=== PATIENT | female | born 1965 | race Caucasian/White ===

== ENCOUNTER 2020-08-26 14:26 | Inpatient (IN) | payer SELFPAY ==
--- NOTE | 2020-08-26 16:20 | RAD ---
Exam: Right foot 3 views: HISTORY: Discoloration coolness right great toe COMPARISON: None FINDINGS: Arthrosis changes of the tibiotalar joint with hypertrophic osteophytosis and joint space loss. Inter nal fixation screws stabilizing distal fibula. Diffuse dorsal soft tissue swelling of the foot No evidence for fracture, dislocation, or other significant acute osseous abnormality. IMPRESSION: Arthrosis changes of the ankle joint.
[2020-08-26 16:34] LABS: #Basophils 0.1 thou/uL (0.0-0.2); #Eosinphils 0.3 thou/uL (0.0-0.7); #Lymphocytes 3.4 thou/uL (1.20-3.40); #Monocytes 0.9 thou/uL (0.11-0.59); #Neutrophils 6.6 thou/uL (1.40-6.50); %Basophils 0.9 % (0.0-1.0); %Eosinophils 2.6 % (0.0-10.0); %Lymphocytes 30.1 % (21.0-51.0); %Monocytes 8.1 % (0.0-10.0); %Neutrophils 58.4 % (42.0-75.0); Hemoglobin 13.7 g/dL (12.0-16.0); Mean Corpuscular HGB CONC 32.7 g/dL (32.0-36.0); Mean Corpuscular Hemoglobin 28.3 pg (27.0-31.0); Mean Corpuscular Volume 86.7 fL (78.0-98.0); Mean Platelet Volume 6.1 fL (7.4-10.4); Platelet Count 392 thou/uL (130-400); RBC Distribution Width 12.7 % (11.5-14.5); Red Blood Cell (RBC) Count 4.83 mill/uL (4.20-5.40); White Blood Cell (WBC) Count 11.3 thou/uL (4.8-10.8)
[2020-08-26 17:01] LABS: ALT (SGPT) 18 U/L (8-55); AST (SGOT) 19 U/L (5-34); Albumin 3.6 g/dL (3.5-5.0); Alkaline Phosphatase 90 U/L (40-110); Anion Gap 17 mmol/L (10-20); BUN (Urea Nitrogen) 10 mg/dL (9.8-20.1); Bilirubin, Total 0.2 mg/dL (0.2-1.2); Calc. Creatinine Clearance 0 mL/min (70-130); Carbon Dioxide 22 mmol/L (22-29); Chloride 108 mmol/L (98-107); Globulin 2.7 g/dL (2.4-3.5); Glucose 154 mg/dL (70-105); Potassium 4.1 mmol/L (3.5-5.1); Protein, Total 6.3 g/dL (6.0-8.3); Sodium 143 mmol/L (136-145)
[2020-08-26] MEDS ORDERED: Cefepime 2 GM VIAL ONE (17:30)
[2020-08-26] MEDS ORDERED: Ondansetron PF 4 MG/2 ML Vial ONE (17:30)
[2020-08-26] MEDS ORDERED: Morphine 4 MG/ML VIAL ONE (17:30)
[2020-08-26] MEDS ORDERED: Vancomycin 1 GM/200 ML BAG ONE (19:25)
[2020-08-26] MEDS ORDERED: HYDROcodone/Acetaminophen 7.5/325 mg Tablet PO PRN (20:30)
[2020-08-26] MEDS ORDERED: HumaLOG 300 UNITS/3 ML VIAL SC PRN (20:30)
[2020-08-26] MEDS ORDERED: Dextrose 5% in Water 1,000 ML IV PRN (20:30)
[2020-08-26] MEDS ORDERED: Ondansetron ODT 4 MG TAB PO PRN (20:30)
[2020-08-26] MEDS ORDERED: Calcium Carbonate 500 MG ChewTAB PO PRN (20:30)
[2020-08-26] MEDS ORDERED: Morphine 2 MG/ML SYRINGE SLOW IVP PRN (20:30)
[2020-08-26] MEDS ORDERED: Ondansetron PF 4 MG/2 ML Vial IVP PRN (20:30)
[2020-08-26] MEDS ORDERED: Acetaminophen 325 MG TAB PO PRN (20:30)
[2020-08-26] MEDS ORDERED: Dextrose 50% Abboject 50 ML SYRINGE SLOW IVP PRN (20:30)
--- NOTE | 2020-08-26 20:38 | PDOC.HHP ---
Hospitalist HPI - History of Present Illness R big toe pain History of Present Illness: Case of an 54y/o female with pmhx of htn, hld hypercholesterolemia and DM who comes to hospital due to great toe pain and discoloration. patient refers she was on her usual state of gwen until over a month ago when she started with pain erythema increased temp and swelling of her toe. she states that she was hospitalize for almost a week at [facility] and left due to the recommendation of amputation. she reports stayed a day on her house and felt toe was getting worse and pain was 10/10 for which she decided to comes to hospital for evaluation. patient denies any fever chills nausea or vomiting. Hospitalist ROS - Review of Systems All other systems reviewed; all pertinent +/- noted in HPI/Subj Hospitalist History - Past Surgical History Past Surgical History: reports: - Family History Family History: reports: diabetes mellitus, hyperlipidemia, hypertension - Social History Smoking Status: Current every day smoker Alcohol: reports: Occassional Drugs: reports: marijuana Living Situation: With Family Activity level: independent ambulation - Exam General Appearance: NAD, awake alert Eye: PERRL, anicteric sclera ENT: normocephalic atraumatic, no oropharyngeal lesions Neck: supple, symmetric, no JVD, no thyromegaly Heart: RRR, no murmur, no gallops, no rubs Respiratory: CTAB, no wheezes, no rales, no ronchi Gastrointestinal: soft, non-tender, non-distended, normal bowel sounds Extremities: no cyanosis, no clubbing, no edema Extremities - other findings: R toe w echymosis erythema tender to palpation increased in temp Neurological: cranial nerve grossly intact, normal sensation to touch, no weakness, no focal deficits Musculoskeletal: normal tone, normal strength, no muscle wasting Psychiatric: normal affect, normal behavior, A&O x 3 Hospitalist Results - Labs Result Diagrams: 08/26/20 16:17 08/26/20 16:17 Lab results: WBC 11.3 thou/uL (4.8-10.8) H 08/26/20 16:17 Hgb 13.7 g/dL (12.0-16.0) 08/26/20 16:17 Hct 41.9 % (36.0-47.0) 08/26/20 16:17 MCV 86.7 fL (78.0-98.0) 08/26/20 16:17 Plt Count 392 thou/uL (130-400) 08/26/20 16:17 Neutrophils % 58.4 % (42.0-75.0) 08/26/20 16:17 ESR Westergren 24 mm/hr (Less than 30) 08/26/20 16:17 Sodium 143 mmol/L (136-145) 08/26/20 16:17 Potassium 4.1 mmol/L (3.5-5.1) 08/26/20 16:17 Chloride 108 mmol/L (98-107) H 08/26/20 16:17 Carbon Dioxide 22 mmol/L (22-29) 08/26/20 16:17 BUN 10 mg/dL (9.8-20.1) 08/26/20 16:17 Creatinine 0.93 mg/dL (0.6-1.1) 08/26/20 16:17 Glucose 154 mg/dL (70-105) H 08/26/20 16:17 Lactic Acid 1.7 mmol/L (0.5-2.2) 08/26/20 16:17 Calcium 9.0 mg/dL (7.8-10.44) 08/26/20 16:17 Total Bilirubin 0.2 mg/dL (0.2-1.2) 08/26/20 16:17 AST 19 U/L (5-34) 08/26/20 16:17 ALT 18 U/L (8-55) 08/26/20 16:17 Alkaline Phosphatase 90 U/L (40-110) 08/26/20 16:17 C-Reactive Protein 0.65 mg/dL (= or < 0.5) H 08/26/20 16:17 Serum Total Protein 6.3 g/dL (6.0-8.3) 08/26/20 16:17 Albumin 3.6 g/dL (3.5-5.0) 08/26/20 16:17 Hospitalist H&P A/P - Problem (1) Cellulitis Code(s): L03.90 - CELLULITIS, UNSPECIFIED Status: Acute (2) Diabetes Code(s): E11.9 - TYPE 2 DIABETES MELLITUS WITHOUT COMPLICATIONS Status: Acute (3) HTN (hypertension) Code(s): I10 - ESSENTIAL (PRIMARY) HYPERTENSION Status: Acute (4) HLD (hyperlipidemia) Code(s): E78.5 - HYPERLIPIDEMIA, UNSPECIFIED Status: Acute (5) Obese Code(s): E66.9 - OBESITY, UNSPECIFIED Status: Acute (6) Smoker Code(s): F17.200 - NICOTINE DEPENDENCE, UNSPECIFIED, UNCOMPLICATED Status: Acute - Plan Plan: 54 y/o female with the stated pmhx who present with cellilitis and likely OM of R great toe cellulitis - visible erythema swelling w black discoloration of finger - 4-6 days of stay at another institution in which she was receiving iv abx w/o significant improvement of condition - pt refers multiple doctors recommended amputation - left AMA 2 day ago - will hold mri and vascular studies which may had been done recently at [facility] by hospital. will get records - podiatry consult - iv zosyn - foot xr w/o any significant osseous abnormalities or gas - pain management - elevated crp - f/u blood cultures - ivfs - npo DM ss+ acc smoker - advised to quit - requested nicotine patch htn / hld / hypercholesterolemia - continue home meds
[2020-08-26] MEDS: Sodium Chloride 0.9% 1,000 ML IV SCH (21:28)
[2020-08-26] MEDS: Nicotine 21 MG PATCH TD SCH (22:13)
[2020-08-26] MEDS: Piperacillin/Tazobactam 3.375 GM in Sodium Chloride 0.9% 100 ML IVPB SCH (23:56)
[2020-08-27 00:20] VITALS: BMI 39.0
[2020-08-27] MEDS: Piperacillin/Tazobactam 3.375 GM in Sodium Chloride 0.9% 100 ML IVPB SCH ×3 (06:49→17:57)
[2020-08-27 07:07] LABS: SARS-CoV-2 MS2 Positive; SARS-CoV-2 N Gene Negative; SARS-CoV-2 S Gene Negative; SARS-CoV-2 by NAA Not Detected (NotDetected); SARS-CoV-2 orf1ab Negative
[2020-08-27 07:20] LABS: ALT (SGPT) 19 U/L (8-55); AST (SGOT) 18 U/L (5-34); Albumin 3.3 g/dL (3.5-5.0); Alkaline Phosphatase 82 U/L (40-110); Anion Gap 12 mmol/L (10-20); BUN (Urea Nitrogen) 11 mg/dL (9.8-20.1); Bilirubin, Total 0.4 mg/dL (0.2-1.2); Calc. Creatinine Clearance 110 mL/min (70-130); Calcium 8.3 mg/dL (7.8-10.44); Carbon Dioxide 25 mmol/L (22-29); Chloride 107 mmol/L (98-107); Globulin 2.6 g/dL (2.4-3.5); Glucose 141 mg/dL (70-105); Potassium 4.4 mmol/L (3.5-5.1); Protein, Total 5.9 g/dL (6.0-8.3); Sodium 140 mmol/L (136-145)
[2020-08-27 08:16] LABS: Eosinophils 3 % (0-10); Hemoglobin 13.6 g/dL (12.0-16.0); Lymphocytes 40 % (21-51); MDiff Complete? YES; Mean Corpuscular HGB CONC 32.1 g/dL (32.0-36.0); Mean Corpuscular Hemoglobin 28.6 pg (27.0-31.0); Mean Corpuscular Volume 89.2 fL (78.0-98.0); Mean Platelet Volume 6.2 fL (7.4-10.4); Monocytes 8 % (0-10); Neutrophil 49 % (42-75); Platelet Count 381 thou/uL (130-400); RBC Distribution Width 12.8 % (11.5-14.5); Red Blood Cell (RBC) Count 4.77 mill/uL (4.20-5.40); White Blood Cell (WBC) Count 10.3 thou/uL (4.8-10.8)
[2020-08-27] MEDS: Enoxaparin Sodium 40 MG/0.4 ML SYRINGE SC SCH (08:54)
[2020-08-27] MEDS: Sodium Chloride 0.9% 1,000 ML IV SCH ×2 (08:54→17:58)
[2020-08-27] MEDS: HYDROcodone/Acetaminophen 7.5/325 mg Tablet PO PRN ×3 (09:45→20:35)
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
--- NOTE | 2020-08-27 16:52 | ULT ---
Right lower extremity arterial Doppler ultrasound: 08/27/2020 COMPARISON: None HISTORY: Gangrene of the right great toe TECHNIQUE: Multiplanar grayscale sonographic imaging of the arterial structures of the right lower ex tremity obtained with color flow and spectral analysis. FINDINGS: There is multifocal calcified plaque within the right common femoral artery. Right common f emoral artery demonstrates a triphasic waveform. The superficial femoral artery is patent demonstrating a biphasic waveform proximally and a triphasic waveform and its mid and distal portions . There is a biphasic waveform within the right profunda femoral artery. The right popliteal artery is patent and demonstrates a biphasic waveform as does the right posterior tibial artery. The anterior tibial artery and the dorsalis pedis artery demonstrate a dampened monophasic waveform. Peak systolic velocity (centimeters per second) is as follows: [employer] 154 Profunda femoral artery 50 SFA proximal 121 SFA mid 76 SFA distal 75 Popliteal artery 58 Anterior tibial artery 29 Posterior tibial artery 66 Dorsalis pedis artery 35 IMPRESSION: Arterial structures of the right lower extremity are patent. Decreased velocity within th e mid SFA and in the region of the popliteal artery may signify areas of underlying stenosis. There is runoff vessel disease, most prominently involving the anterior tibial artery and dorsalis pedis ar librado.
[2020-08-27] MEDS: Morphine 2 MG/ML VIAL SLOW IVP PRN (18:01)
--- NOTE | 2020-08-27 19:46 | PDOC.HOSPP ---
- Subjective Encounter Date: 08/27/20 Encounter Time: 16:00 Subjective: Patient was seen and examined in bed. She was complaining of severe pain in her right big toe. Otherwise denies any chest pain or shortness of breath. - Objective Vital Signs & Weight: Vital Signs (12 hours) Temp Pulse Resp BP Pulse Ox 08/27/20 16:09 97.6 F 80 20 104/68 92 L 08/27/20 11:29 97.7 F 82 20 164/66 H 92 L Weight Weight 200 lb 2 oz I&O: 08/26/20 08/27/20 08/28/20 06:59 06:59 06:59 Intake Total 1170 Balance 1170 Result Diagrams: 08/27/20 06:39 08/27/20 06:39 Additional Labs: Accuchecks 08/27/20 08/27/20 08/27/20 16:24 11:11 04:43 POC Glucose 119 H 144 H 156 H 08/26/20 21:16 POC Glucose 263 H Hospitalist ROS - Medication Medications: Active Medications Generic Name Dose Route Start Last Admin Trade Name Freq PRN Reason Stop Dose Admin Hydrocodone Bitart/Acetaminophen 1 tab 08/26/20 20:30 08/27/20 01:07 Hydrocodone/Acetaminophen 7.5/325 Mg Tablet PO 1 tab Q4H PRN Administration Moderate Pain (4-6) Hydrocodone Bitart/Acetaminophen 2 tab 08/26/20 20:30 08/27/20 14:34 Hydrocodone/Acetaminophen 7.5/325 Mg Tablet PO 2 tab Q4H PRN Administration Severe Pain (7-10) Enoxaparin Sodium 40 mg 08/27/20 09:00 08/27/20 08:54 Enoxaparin Sodium 40 Mg/0.4 Ml Syringe SC Not Given 0900 MIGDALIA Sodium Chloride 1,000 mls @ 70 mls/hr 08/26/20 20:30 08/27/20 17:58 Normal Saline 0.9% IV 1,000 mls .[id number] MIGDALIA Administration Piperacillin Sod/Tazobactam 100 mls @ 200 mls/hr 08/26/20 23:59 08/27/20 17:57 Sod 3.375 gm/ Sodium Chloride IVPB 100 mls Q6HR MIGDALIA Administration Morphine Sulfate 2 mg 08/27/20 17:53 08/27/20 18:01 Morphine 2 Mg/Ml Vial SLOW IVP 2 mg Q4H PRN Administration Moderate to Severe Pain (6-10) Nicotine 21 mg 08/26/20 20:30 08/26/20 22:13 Nicotine 21 Mg Patch TD 21 mg Q24HR MIGDALIA Administration - Exam General Appearance: awake alert General - other findings: Obese Heart: RRR, no murmur, no gallops, no rubs Respiratory: no wheezes, no rales, no ronchi, no tachypnea Gastrointestinal: soft, non-tender, non-distended, normal bowel sounds Extremities: no cyanosis, no clubbing, no edema Extremities - other findings: Gangrenous looking right big toe, severely tender Neurological: cranial nerve grossly intact, no weakness, no focal deficits Psychiatric: normal affect, A&O x 3 Hosp A/P - Plan This is a 54-year-old female patient history of diabetes mellitus presenting with severe pain and darkening of her right big toe. Right big toe gangrene In acute pain Awaiting vascular surgery evaluation. Diabetes mellitus Correctional dose insulin Monitor glucose. Hypertension Resume home medications. Hyperlipidemia Resume home meds. Obesity Monitor Smoker Nicotine replacement if needed. VT prophylaxisLovenox CODE STATUSfull code
[2020-08-27] MEDS: Nicotine 21 MG PATCH TD SCH (20:20)
[2020-08-27] MEDS ORDERED: ALPRAZolam 0.5 MG TAB PO SCH (23:30)
[2020-08-28] MEDS: HYDROcodone/Acetaminophen 7.5/325 mg Tablet PO PRN ×4 (00:01→21:39)
[2020-08-28] MEDS: Piperacillin/Tazobactam 3.375 GM in Sodium Chloride 0.9% 100 ML IVPB SCH ×4 (00:02→17:37)
[2020-08-28] MEDS: Morphine 2 MG/ML VIAL SLOW IVP PRN ×3 (03:41→17:48)
[2020-08-28] MEDS: Enoxaparin Sodium 40 MG/0.4 ML SYRINGE SC SCH (07:45)
[2020-08-28] MEDS: ALPRAZolam 0.5 MG TAB PO SCH ×3 (09:24→21:29)
--- NOTE | 2020-08-28 19:14 | PDOC.HOSPP ---
- Subjective Encounter Date: 08/28/20 Subjective: Patient was seen and examined in bed. She had a good night. Has no complaints today. Surgery on her foot has been postponed to tomorrow. - Objective Vital Signs & Weight: Vital Signs (12 hours) Temp Pulse Resp BP Pulse Ox 08/28/20 17:39 98.2 F 81 18 104/67 81 L 08/28/20 13:34 97.9 F 77 18 115/77 93 L 08/28/20 08:25 97.6 F 79 18 94/65 97 Weight Weight 200 lb 2 oz I&O: 08/27/20 08/28/20 08/29/20 06:59 06:59 06:59 Intake Total 1170 860 Balance 1170 860 Result Diagrams: 08/27/20 06:39 08/27/20 06:39 Additional Labs: Accuchecks 08/28/20 08/28/20 08/27/20 12:03 03:52 19:57 POC Glucose 128 H 119 H 182 H Hospitalist ROS - Medication Medications: Active Medications Generic Name Dose Route Start Last Admin Trade Name Freq PRN Reason Stop Dose Admin Hydrocodone Bitart/Acetaminophen 1 tab 08/26/20 20:30 08/27/20 01:07 Hydrocodone/Acetaminophen 7.5/325 Mg Tablet PO 1 tab Q4H PRN Administration Moderate Pain (4-6) Hydrocodone Bitart/Acetaminophen 2 tab 08/26/20 20:30 08/28/20 13:10 Hydrocodone/Acetaminophen 7.5/325 Mg Tablet PO 2 tab Q4H PRN Administration Severe Pain (7-10) Alprazolam 0.5 mg 08/28/20 09:00 08/28/20 15:27 Alprazolam 0.5 Mg Tab PO 0.5 mg TID MIGDALIA Administration Enoxaparin Sodium 40 mg 08/27/20 09:00 08/28/20 07:45 Enoxaparin Sodium 40 Mg/0.4 Ml Syringe SC Not Given 0900 MIGDALIA Sodium Chloride 1,000 mls @ 70 mls/hr 08/26/20 20:30 08/27/20 17:58 Normal Saline 0.9% IV 1,000 mls .[id number] MIGDALIA Administration Piperacillin Sod/Tazobactam 100 mls @ 200 mls/hr 08/26/20 23:59 11/23/20 17:37 Sod 3.375 gm/ Sodium Chloride IVPB 100 mls Q6HR MIGDALIA Administration Morphine Sulfate 2 mg 08/27/20 17:53 08/28/20 17:48 Morphine 2 Mg/Ml Vial SLOW IVP 2 mg Q4H PRN Administration Moderate to Severe Pain (6-10) Nicotine 21 mg 08/26/20 20:30 08/27/20 20:20 Nicotine 21 Mg Patch TD 21 mg Q24HR MIGDALIA Administration - Exam General Appearance: awake alert Heart: RRR, no murmur, no gallops, no rubs Respiratory: CTAB, no wheezes, no rales, no ronchi Gastrointestinal: soft, non-tender, non-distended, normal bowel sounds Extremities: no cyanosis, no clubbing, no edema Extremities - other findings: Gangrenous right big toe. Neurological: cranial nerve grossly intact, no weakness Musculoskeletal: normal tone, no muscle wasting Psychiatric: normal affect, A&O x 3 Hosp A/P - Plan This is a 54-year-old female patient history of diabetes mellitus presenting with severe pain and darkening of her right big toe. Right big toe gangrene/cellulitis In acute pain Continue Zosyn For amputation tomorrow. Vascular surgery following Diabetes mellitus Correctional dose insulin Monitor glucose. Hypertension Resume home medications. Hyperlipidemia Resume home meds. Obesity Monitor Smoker Nicotine replacement if needed. VT prophylaxisLovenox CODE STATUSfull code
[2020-08-28] MEDS: Nicotine 21 MG PATCH TD SCH (19:55)
[2020-08-28] MEDS: Sodium Chloride 0.9% 1,000 ML IV SCH (19:57)
[2020-08-29] MEDS: Piperacillin/Tazobactam 3.375 GM in Sodium Chloride 0.9% 100 ML IVPB SCH ×5 (00:03→23:28)
[2020-08-29] MEDS: HYDROcodone/Acetaminophen 7.5/325 mg Tablet PO PRN ×5 (02:07→21:16)
[2020-08-29] MEDS: Sodium Chloride 0.9% 1,000 ML IV SCH (05:17)
[2020-08-29] MEDS ORDERED: Famotidine/PF 20 mg/2ml Vial ONE (07:17)
[2020-08-29] MEDS ORDERED: Midazolam HCl 2 mg/2 ml Vial ONE (07:17)
[2020-08-29] MEDS ORDERED: Fentanyl 100 MCG/2 ML VIAL ONE ×4 (07:17→09:09)
[2020-08-29] MEDS ORDERED: Promethazine HCl 25 MG/ML VIAL SLOW IVP PRN (08:52)
[2020-08-29] MEDS ORDERED: Meperidine HCl/PF 25 MG/ML VIAL SLOW IVP PRN (08:52)
[2020-08-29] MEDS ORDERED: Promethazine HCl 25 MG/ML VIAL IM PRN (08:52)
[2020-08-29] MEDS ORDERED: HYDROmorphone 2 MG/ML VIAL SLOW IVP PRN (08:52)
[2020-08-29] MEDS ORDERED: Lidocaine 1% PF 5 ML VIAL ONE (10:00)
[2020-08-29] MEDS ORDERED: PROPOFOL 200 MG/20 ML VIAL ONE (10:00)
[2020-08-29] MEDS ORDERED: Ondansetron PF 4 MG/2 ML Vial ONE (10:00)
[2020-08-29] MEDS: Morphine 2 MG/ML VIAL SLOW IVP PRN ×3 (10:13→20:04)
[2020-08-29] MEDS: ALPRAZolam 0.5 MG TAB PO SCH ×3 (10:18→20:04)
--- NOTE | 2020-08-29 10:43 | OP ---
DATE OF PROCEDURE: 08/29/2020 PREOPERATIVE DIAGNOSIS: Ischemic rest pain, left great toe. PROCEDURE PERFORMED: Amputation of left great toe. DESCRIPTION OF PROCEDURE: After prepping and draping, circumferential incision was made in the midportion of the toe, excising the distal phalanx down to the joint and then excising the proximal phalanx about half way down its length. Wound was then irrigated and closed with simple nylon sutures. The patient tolerated the procedure well with minimal blood loss. Job ID: [id number]
[2020-08-29] MEDS: Enoxaparin Sodium 40 MG/0.4 ML SYRINGE SC SCH (10:50)
[2020-08-29] MEDS: Ketorolac Tromethamine 30 MG/ML VIAL IVP SCH ×3 (12:04→23:28)
[2020-08-29] MEDS ORDERED: Ketorolac Tromethamine 30 MG/ML VIAL IVP SCH (18:30)
--- NOTE | 2020-08-29 19:52 | PDOC.HOSPP ---
- Subjective Encounter Date: 08/29/20 Subjective: Men in bed. Scheduled, to the OR with right big toe amputation. She was in mild pain but otherwise generally stable. She denied any chest pain or shortness of breath. - Objective Vital Signs & Weight: Vital Signs (12 hours) Temp Pulse Resp BP BP Pulse Ox 08/29/20 19:40 98.1 F 78 20 122/72 95 08/29/20 16:00 97.9 F 80 18 138/83 98 08/29/20 12:00 81 18 131/77 98 08/29/20 10:00 94 L 08/29/20 09:40 97.5 F L 88 16 120/80 94 L Weight Weight 200 lb 2 oz I&O: 08/28/20 08/29/20 08/30/20 06:59 06:59 06:59 Intake Total 1170 2300 1290 Balance 1170 2300 1290 Result Diagrams: 08/27/20 06:39 08/27/20 06:39 Additional Labs: Accuchecks 08/29/20 08/29/20 08/28/20 11:37 04:27 19:53 POC Glucose 124 H 129 H 120 H 08/28/20 17:05 POC Glucose 166 H Hospitalist ROS - Medication Medications: Active Medications Generic Name Dose Route Start Last Admin Trade Name Freq PRN Reason Stop Dose Admin Hydrocodone Bitart/Acetaminophen 1 tab 08/26/20 20:30 08/27/20 01:07 Hydrocodone/Acetaminophen 7.5/325 Mg Tablet PO 1 tab Q4H PRN Administration Moderate Pain (4-6) Hydrocodone Bitart/Acetaminophen 2 tab 08/26/20 20:30 08/29/20 16:56 Hydrocodone/Acetaminophen 7.5/325 Mg Tablet PO 2 tab Q4H PRN Administration Severe Pain (7-10) Alprazolam 0.5 mg 08/28/20 09:00 08/29/20 14:40 Alprazolam 0.5 Mg Tab PO 0.5 mg TID MIGDALIA Administration Enoxaparin Sodium 40 mg 08/27/20 09:00 08/29/20 10:50 Enoxaparin Sodium 40 Mg/0.4 Ml Syringe SC 40 mg 0900 MIGDALIA Administration Piperacillin Sod/Tazobactam 100 mls @ 200 mls/hr 08/26/20 23:59 08/29/20 17:36 Sod 3.375 gm/ Sodium Chloride IVPB 100 mls Q6HR MIGDALIA Administration Ketorolac Tromethamine 15 mg 08/29/20 18:30 08/29/20 19:29 Ketorolac Tromethamine 30 Mg/Ml Vial IVP 08/29/20 20:30 Not Given NOW MIGDALIA Morphine Sulfate 2 mg 08/27/20 17:53 08/29/20 14:39 Morphine 2 Mg/Ml Vial SLOW IVP 2 mg Q4H PRN Administration Moderate to Severe Pain (6-10) Nicotine 21 mg 08/26/20 20:30 08/28/20 19:55 Nicotine 21 Mg Patch TD 21 mg Q24HR MIGDALIA Administration - Exam General Appearance: awake alert Heart: RRR, no murmur, no gallops Respiratory: CTAB, no wheezes, no rales, no ronchi Gastrointestinal: soft, non-tender, non-distended, normal bowel sounds Extremities: no cyanosis, no clubbing, no edema Extremities - other findings: Left foot dressed. Neurological: cranial nerve grossly intact, no focal deficits Psychiatric: normal affect, A&O x 3 Hosp A/P - Plan This is a 54-year-old female patient history of diabetes mellitus presenting with severe pain and darkening of her right big toe. He status post right big toe amputation currently stable. Right big toe gangrene/cellulitis Status post amputation Continue monitoring Continue Zosyn for now. Pain relief as needed. Vascular surgery following. Diabetes mellitus Correctional dose insulin Monitor glucose. Hypertension Resume home medications. Hyperlipidemia Resume home meds. Obesity Monitor Smoker Nicotine replacement if needed. VT prophylaxisLovenox CODE STATUSfull code
[2020-08-29] MEDS: Nicotine 21 MG PATCH TD SCH (20:06)
[2020-08-30] MEDS: HYDROcodone/Acetaminophen 7.5/325 mg Tablet PO PRN ×5 (01:20→23:00)
[2020-08-30] MEDS: Piperacillin/Tazobactam 3.375 GM in Sodium Chloride 0.9% 100 ML IVPB SCH ×4 (05:15→23:03)
[2020-08-30] MEDS: Ketorolac Tromethamine 30 MG/ML VIAL IVP SCH ×2 (05:16→11:28)
[2020-08-30 06:59] LABS: #Basophils 0.1 thou/uL (0.0-0.2); #Eosinphils 0.2 thou/uL (0.0-0.7); #Lymphocytes 2.3 thou/uL (1.20-3.40); #Monocytes 0.6 thou/uL (0.11-0.59); #Neutrophils 3.9 thou/uL (1.40-6.50); %Basophils 0.9 % (0.0-1.0); %Eosinophils 3.3 % (0.0-10.0); %Lymphocytes 32.6 % (21.0-51.0); %Neutrophils 55.2 % (42.0-75.0); Hemoglobin 11.2 g/dL (12.0-16.0); Mean Corpuscular HGB CONC 32.2 g/dL (32.0-36.0); Mean Platelet Volume 6.5 fL (7.4-10.4); Platelet Count 294 thou/uL (130-400); Red Blood Cell (RBC) Count 3.85 mill/uL (4.20-5.40); White Blood Cell (WBC) Count 7.1 thou/uL (4.8-10.8)
[2020-08-30 07:15] LABS: Anion Gap 17 mmol/L (10-20); BUN (Urea Nitrogen) 16 mg/dL (9.8-20.1); Calc. Creatinine Clearance 90 mL/min (70-130); Calcium 8.5 mg/dL (7.8-10.44); Carbon Dioxide 20 mmol/L (22-29); Chloride 111 mmol/L (98-107); Glucose 126 mg/dL (70-105); Potassium 5.6 mmol/L (3.5-5.1); Sodium 142 mmol/L (136-145)
[2020-08-30] MEDS: ALPRAZolam 0.5 MG TAB PO SCH ×3 (09:33→20:11)
[2020-08-30] MEDS: Enoxaparin Sodium 40 MG/0.4 ML SYRINGE SC SCH (09:33)
[2020-08-30] MEDS: Polyethylene Glycol 3350 17 GM Packet PO PRN (12:40)
[2020-08-30 13:37] LABS: Anion Gap 17 mmol/L (10-20); BUN (Urea Nitrogen) 18 mg/dL (9.8-20.1); Calc. Creatinine Clearance 89 mL/min (70-130); Carbon Dioxide 22 mmol/L (22-29); Chloride 110 mmol/L (98-107); Glucose 98 mg/dL (70-105); Potassium 5.3 mmol/L (3.5-5.1); Sodium 144 mmol/L (136-145)
[2020-08-30] MEDS: Morphine 2 MG/ML VIAL SLOW IVP PRN ×2 (13:54→20:01)
--- NOTE | 2020-08-30 16:34 | PRG ---
DATE OF SERVICE: 08/30/2020 The patient is afebrile with stable vital signs, postoperative day #1 from toe amputation. She states her pain is improved and she is able to walk to the bathroom without difficulty. Dressing is dry and intact. At this time, I would continue the IV antibiotics for another couple of days and then the patient should be ready for discharge. I do not know if her home situation is suitable for taking care of herself. Her daughter was living with her, but evidently, there was some conflict between the patient and daughter. Job ID: [id number]
[2020-08-30] MEDS: Nicotine 21 MG PATCH TD SCH (20:11)
--- NOTE | 2020-08-30 23:51 | PDOC.HOSPP ---
- Subjective Encounter Date: 08/30/20 Subjective: Patient was seen and examined in bed. She complains of pain in her right big toe otherwise denies any chest projecting of breath. No significant events overnight. - Objective Vital Signs & Weight: Vital Signs (12 hours) Temp Pulse Resp BP Pulse Ox 08/30/20 20:10 97 08/30/20 19:46 98.2 F 73 16 138/82 97 08/30/20 16:00 98.0 F 78 18 141/77 H 96 Weight Weight 200 lb 2 oz I&O: 08/29/20 08/30/20 08/31/20 06:59 06:59 06:59 Intake Total 2300 1290 2070 Balance 2300 1290 2070 Result Diagrams: 08/30/20 06:48 08/30/20 13:13 Additional Labs: Accuchecks 08/30/20 08/30/20 08/30/20 19:53 16:03 11:15 POC Glucose 165 H 130 H 116 H 08/30/20 08/29/20 04:58 17:10 POC Glucose 165 H 105 H Hospitalist ROS - Medication Medications: Active Medications Generic Name Dose Route Start Last Admin Trade Name Freq PRN Reason Stop Dose Admin Hydrocodone Bitart/Acetaminophen 1 tab 08/26/20 20:30 08/27/20 01:07 Hydrocodone/Acetaminophen 7.5/325 Mg Tablet PO 1 tab Q4H PRN Administration Moderate Pain (4-6) Hydrocodone Bitart/Acetaminophen 2 tab 08/26/20 20:30 08/30/20 23:00 Hydrocodone/Acetaminophen 7.5/325 Mg Tablet PO 2 tab Q4H PRN Administration Severe Pain (7-10) Alprazolam 0.5 mg 08/28/20 09:00 08/30/20 20:11 Alprazolam 0.5 Mg Tab PO 0.5 mg TID MIGDALIA Administration Enoxaparin Sodium 40 mg 08/27/20 09:00 08/30/20 09:33 Enoxaparin Sodium 40 Mg/0.4 Ml Syringe SC 40 mg 0900 MIGDALIA Administration Piperacillin Sod/Tazobactam 100 mls @ 200 mls/hr 08/26/20 23:59 08/30/20 23:03 Sod 3.375 gm/ Sodium Chloride IVPB 100 mls Q6HR MIGDALIA Administration Morphine Sulfate 2 mg 08/27/20 17:53 08/30/20 20:01 Morphine 2 Mg/Ml Vial SLOW IVP 2 mg Q4H PRN Administration Moderate to Severe Pain (6-10) Nicotine 21 mg 08/26/20 20:30 08/30/20 20:11 Nicotine 21 Mg Patch TD 21 mg Q24HR MIGDALIA Administration Polyethylene Glycol 17 gm 08/30/20 12:29 08/30/20 12:40 Polyethylene Glycol 3350 17 Gm Packet PO 17 gm DAILYPRN PRN Administration Constipation - Exam General Appearance: awake alert Heart: RRR, no murmur, no gallops Respiratory: CTAB, no wheezes, no rales Gastrointestinal: soft, non-tender, non-distended, normal bowel sounds Extremities: no cyanosis, no clubbing, no edema Extremities - other findings: Right big toe amputated. Wound dressed Neurological: cranial nerve grossly intact, no weakness Psychiatric: normal affect, A&O x 3 Hosp A/P - Plan This is a 54-year-old female patient history of diabetes mellitus presenting with severe pain and darkening of her right big toe with gangrene. She is status post right big toe amputation currently stable. Right big toe gangrene/cellulitis Status post amputation Continue monitoring Continue Zosyn for now. Pain relief as needed. Vascular surgery following. Diabetes mellitus Correctional dose insulin Monitor glucose. Hypertension Resume home medications. Hyperlipidemia Resume home meds. Obesity Monitor Smoker Nicotine replacement if needed. VT prophylaxisLovenox CODE STATUSfull code DispositionPT consulted for evaluation
[2020-08-31] MEDS: HYDROcodone/Acetaminophen 7.5/325 mg Tablet PO PRN ×5 (04:30→21:18)
[2020-08-31] MEDS: Piperacillin/Tazobactam 3.375 GM in Sodium Chloride 0.9% 100 ML IVPB SCH ×3 (05:19→17:08)
[2020-08-31 06:32] LABS: Anion Gap 15 mmol/L (10-20); BUN (Urea Nitrogen) 18 mg/dL (9.8-20.1); Calc. Creatinine Clearance 110 mL/min (70-130); Calcium 8.7 mg/dL (7.8-10.44); Carbon Dioxide 23 mmol/L (22-29); Chloride 110 mmol/L (98-107); Glucose 116 mg/dL (70-105); Potassium 5.4 mmol/L (3.5-5.1); Sodium 143 mmol/L (136-145)
[2020-08-31] MEDS: ALPRAZolam 0.5 MG TAB PO SCH ×3 (07:57→20:14)
[2020-08-31] MEDS: Enoxaparin Sodium 40 MG/0.4 ML SYRINGE SC SCH (07:58)
--- NOTE | 2020-08-31 10:43 | PDOC.HOSPP ---
- Subjective Encounter Date: 08/31/20 Encounter Time: 10:30 Subjective: f/u s/p R great toe amputation due to gangrene in context of DM POD #2. Receiving Zosyn currently. - Objective Vital Signs & Weight: Vital Signs (12 hours) Temp Pulse Resp BP Pulse Ox 08/31/20 07:11 98.4 F 75 18 173/97 H 94 L 08/31/20 05:00 98.3 F 71 18 160/89 H 94 L Weight Weight 200 lb 2 oz I&O: 08/30/20 08/31/20 09/01/20 06:59 06:59 06:59 Intake Total 1290 2770 Balance 1290 2770 Result Diagrams: 08/30/20 06:48 08/31/20 06:08 Additional Labs: Accuchecks 08/30/20 08/30/20 08/30/20 19:53 16:03 11:15 POC Glucose 165 H 130 H 116 H Microbiology 08/26/20 21:46 Venous blood - Right Hand Blood Culture - Preliminary NO GROWTH AT 48 HOURS 08/26/20 21:46 Venous blood - Right Arm Blood Culture - Preliminary NO GROWTH AT 48 HOURS Laboratory Tests 08/26/20 08/30/20 08/30/20 19:54 06:48 13:13 Potassium 5.6 H 5.3 H SARS-CoV-2 (PCR) Not Detected Hospitalist ROS - Medication Medications: Active Medications Generic Name Dose Route Start Last Admin Trade Name Freq PRN Reason Stop Dose Admin Hydrocodone Bitart/Acetaminophen 1 tab 08/26/20 20:30 08/27/20 01:07 Hydrocodone/Acetaminophen 7.5/325 Mg Tablet PO 1 tab Q4H PRN Administration Moderate Pain (4-6) Hydrocodone Bitart/Acetaminophen 2 tab 08/26/20 20:30 08/31/20 07:57 Hydrocodone/Acetaminophen 7.5/325 Mg Tablet PO 2 tab Q4H PRN Administration Severe Pain (7-10) Alprazolam 0.5 mg 08/28/20 09:00 08/31/20 07:57 Alprazolam 0.5 Mg Tab PO 0.5 mg TID MIGDALIA Administration Enoxaparin Sodium 40 mg 08/27/20 09:00 08/31/20 07:58 Enoxaparin Sodium 40 Mg/0.4 Ml Syringe SC 40 mg 0900 MIGDALIA Administration Piperacillin Sod/Tazobactam 100 mls @ 200 mls/hr 08/26/20 23:59 08/31/20 05:19 Sod 3.375 gm/ Sodium Chloride IVPB 100 mls Q6HR MIGDALIA Administration Morphine Sulfate 2 mg 08/27/20 17:53 08/30/20 20:01 Morphine 2 Mg/Ml Vial SLOW IVP 2 mg Q4H PRN Administration Moderate to Severe Pain (6-10) Nicotine 21 mg 08/26/20 20:30 08/30/20 20:11 Nicotine 21 Mg Patch TD 21 mg Q24HR MIGDALIA Administration Polyethylene Glycol 17 gm 08/30/20 12:29 08/30/20 12:40 Polyethylene Glycol 3350 17 Gm Packet PO 17 gm DAILYPRN PRN Administration Constipation - Exam General Appearance: NAD, awake alert Eye: PERRL, anicteric sclera ENT: normocephalic atraumatic, no oropharyngeal lesions Neck: supple, symmetric, no JVD, no thyromegaly, no lymphadenopathy Heart: RRR, no murmur, no gallops, no rubs, normal peripheral pulses Heart - other findings: S1, S2 Respiratory: CTAB, no wheezes, no rales, no ronchi, normal chest expansion, no tachypnea Gastrointestinal: soft, non-tender, non-distended, normal bowel sounds, no palpable masses Gastrointestinal - other findings: obese Extremities: no cyanosis, no clubbing Extremities - other findings: RLE with dressing in place, post-surgical changes of R great toe Skin: normal turgor Neurological: cranial nerve grossly intact, no new deficit Musculoskeletal: normal tone, generalized weakness Psychiatric: normal affect, A&O x 3 Hosp A/P (1) Gangrene of toe of right foot Code(s): I96 - GANGRENE, NOT ELSEWHERE CLASSIFIED Status: Acute Plan: s/p amputation of R great toe POD #2, continue Zosyn IV, consult WCT, CM consult for SNF/Rehab option (2) Diabetes Code(s): E11.9 - TYPE 2 DIABETES MELLITUS WITHOUT COMPLICATIONS Status: Chronic Qualifiers: Diabetes mellitus complication detail: with peripheral angiopathy with gangrene Plan: Continue ISS, serial accuchecks, Resume Metformin, ADA (3) HTN (hypertension) Code(s): I10 - ESSENTIAL (PRIMARY) HYPERTENSION Status: Chronic Qualifiers: Hypertension type: essential hypertension Qualified Code(s): I10 - Essential (primary) hypertension Plan: Start Norvasc 5mg daily, hold home Lisinopril due to hyperkalemia (4) Smoker Code(s): F17.200 - NICOTINE DEPENDENCE, UNSPECIFIED, UNCOMPLICATED Status: Chronic Plan: Smoking cessation resources, Nicotine patch - Plan continue antibiotics, PT/OT, social studies department chair, out of bed/ambulate Stable currently Continue Zosyn IV Consult WCT team CM consult for SNF/Rehab options Pain control Resume Metformin ISS AM lab: BMP, CBC, A1C
[2020-08-31] MEDS ORDERED: Amlodipine 5 MG TAB PO SCH (11:00)
[2020-08-31] MEDS: metFORMIN 500 MG TAB PO SCH (17:08)
[2020-08-31] MEDS: Nicotine 21 MG PATCH TD SCH (20:14)
[2020-08-31] MEDS: Atorvastatin Calcium 40 MG TAB PO SCH (20:15)
[2020-08-31] MEDS: Polyethylene Glycol 3350 17 GM Packet PO PRN (21:18)
[2020-09-01] MEDS: Piperacillin/Tazobactam 3.375 GM in Sodium Chloride 0.9% 100 ML IVPB SCH ×3 (00:38→12:01)
[2020-09-01] MEDS: HYDROcodone/Acetaminophen 7.5/325 mg Tablet PO PRN ×5 (01:28→20:52)
[2020-09-01 06:09] LABS: #Basophils 0.1 thou/uL (0.0-0.2); #Eosinphils 0.2 thou/uL (0.0-0.7); #Lymphocytes 1.9 thou/uL (1.20-3.40); #Monocytes 0.7 thou/uL (0.11-0.59); #Neutrophils 4.1 thou/uL (1.40-6.50); %Basophils 1.1 % (0.0-1.0); %Eosinophils 2.6 % (0.0-10.0); %Lymphocytes 27.1 % (21.0-51.0); %Monocytes 10.1 % (0.0-10.0); %Neutrophils 59.2 % (42.0-75.0); Hemoglobin 11.5 g/dL (12.0-16.0); Mean Corpuscular HGB CONC 32.2 g/dL (32.0-36.0); Mean Corpuscular Hemoglobin 28.5 pg (27.0-31.0); Mean Corpuscular Volume 88.7 fL (78.0-98.0); Mean Platelet Volume 6.2 fL (7.4-10.4); Platelet Count 321 thou/uL (130-400); Red Blood Cell (RBC) Count 4.02 mill/uL (4.20-5.40); White Blood Cell (WBC) Count 6.8 thou/uL (4.8-10.8)
[2020-09-01 06:18] LABS: Hemoglobin A1c 8.2 % (4.0-6.0)
[2020-09-01 06:32] LABS: Anion Gap 12 mmol/L (10-20); BUN (Urea Nitrogen) 14 mg/dL (9.8-20.1); Calc. Creatinine Clearance 114 mL/min (70-130); Calcium 8.9 mg/dL (7.8-10.44); Carbon Dioxide 24 mmol/L (22-29); Chloride 109 mmol/L (98-107); Glucose 144 mg/dL (70-105); Potassium 4.3 mmol/L (3.5-5.1); Sodium 141 mmol/L (136-145)
[2020-09-01] MEDS: Amlodipine 5 MG TAB PO SCH (08:12)
[2020-09-01] MEDS: ALPRAZolam 0.5 MG TAB PO SCH ×3 (08:12→21:01)
[2020-09-01] MEDS: metFORMIN 500 MG TAB PO SCH ×2 (08:12→16:00)
[2020-09-01] MEDS: Clopidogrel Bisulfate 75 MG TAB PO SCH (08:12)
[2020-09-01] MEDS: Citalopram 20 MG TAB PO SCH (08:13)
[2020-09-01] MEDS: Enoxaparin Sodium 40 MG/0.4 ML SYRINGE SC SCH (08:14)
[2020-09-01] MEDS ORDERED: Lisinopril 20 MG TAB PO SCH (09:00)
--- NOTE | 2020-09-01 09:29 | PDOC.HOSPP ---
- Subjective Encounter Date: 09/01/20 Encounter Time: 09:35 Subjective: f/u for R great toe gangrene s/p amputation POD #3 receiving Zosyn and local wound care. No new complaints. Awaiting potential SNF/rehab options. - Objective Vital Signs & Weight: Vital Signs (12 hours) Temp Pulse Resp BP Pulse Ox 09/01/20 06:50 98 F 77 17 141/83 H 96 09/01/20 05:00 17 Weight Weight 200 lb 2 oz I&O: 08/31/20 09/01/20 09/02/20 06:59 06:59 06:59 Intake Total 2770 1030 Balance 2770 1030 Result Diagrams: 09/01/20 05:42 09/01/20 05:42 Additional Labs: Accuchecks 09/01/20 08/31/20 08/31/20 04:28 19:52 16:29 POC Glucose 150 H 187 H 173 H 08/31/20 11:32 POC Glucose 145 H Microbiology 08/26/20 21:46 Venous blood - Right Hand Blood Culture - Preliminary NO GROWTH AT 48 HOURS 08/26/20 21:46 Venous blood - Right Arm Blood Culture - Preliminary NO GROWTH AT 48 HOURS Laboratory Tests 08/26/20 08/30/20 08/30/20 19:54 06:48 13:13 Potassium 5.6 H 5.3 H SARS-CoV-2 (PCR) Not Detected Laboratory Tests 09/01/20 05:42 Hemoglobin A1c 8.2 H Hospitalist ROS - Medication Medications: Active Medications Generic Name Dose Route Start Last Admin Trade Name Freq PRN Reason Stop Dose Admin Hydrocodone Bitart/Acetaminophen 1 tab 08/26/20 20:30 08/27/20 01:07 Hydrocodone/Acetaminophen 7.5/325 Mg Tablet PO 1 tab Q4H PRN Administration Moderate Pain (4-6) Hydrocodone Bitart/Acetaminophen 2 tab 08/26/20 20:30 09/01/20 06:45 Hydrocodone/Acetaminophen 7.5/325 Mg Tablet PO 2 tab Q4H PRN Administration Severe Pain (7-10) Alprazolam 0.5 mg 08/28/20 09:00 09/01/20 08:12 Alprazolam 0.5 Mg Tab PO 0.5 mg TID MIGDALIA Administration Amlodipine Besylate 5 mg 09/01/20 09:00 09/01/20 08:12 Amlodipine 5 Mg Tab PO 5 mg DAILY MIGDALIA Administration Atorvastatin Calcium 40 mg 08/31/20 21:00 08/31/20 20:15 Atorvastatin Calcium 40 Mg Tab PO 40 mg HS MIGDALIA Administration Citalopram Hydrobromide 40 mg 09/01/20 09:00 09/01/20 08:13 Citalopram 20 Mg Tab PO 40 mg DAILY MIGDALIA Administration Clopidogrel Bisulfate 75 mg 09/01/20 09:00 09/01/20 08:12 Clopidogrel Bisulfate 75 Mg Tab PO 75 mg DAILY MIGDALIA Administration Enoxaparin Sodium 40 mg 08/27/20 09:00 09/01/20 08:14 Enoxaparin Sodium 40 Mg/0.4 Ml Syringe SC 40 mg 0900 MIGDALIA Administration Piperacillin Sod/Tazobactam 100 mls @ 200 mls/hr 08/26/20 23:59 09/01/20 05:45 Sod 3.375 gm/ Sodium Chloride IVPB 100 mls Q6HR MIGDALIA Administration Metformin HCl 1,000 mg 08/31/20 17:00 09/01/20 08:12 Metformin 500 Mg Tab PO 1,000 mg BID-WM MIGDALIA Administration Morphine Sulfate 2 mg 08/27/20 17:53 08/30/20 20:01 Morphine 2 Mg/Ml Vial SLOW IVP 2 mg Q4H PRN Administration Moderate to Severe Pain (6-10) Nicotine 21 mg 08/26/20 20:30 08/31/20 20:14 Nicotine 21 Mg Patch TD 21 mg Q24HR MIGDALIA Administration Polyethylene Glycol 17 gm 08/30/20 12:29 08/31/20 21:18 Polyethylene Glycol 3350 17 Gm Packet PO 17 gm DAILYPRN PRN Administration Constipation - Exam General Appearance: NAD, awake alert Eye: PERRL, anicteric sclera ENT: normocephalic atraumatic, no oropharyngeal lesions Neck: supple, symmetric, no JVD, no thyromegaly, no lymphadenopathy Heart: RRR, no murmur, no gallops, no rubs, normal peripheral pulses Heart - other findings: S1, S2 Respiratory: CTAB, no wheezes, no rales, no ronchi, normal chest expansion, no tachypnea Gastrointestinal: soft, non-tender, non-distended, normal bowel sounds Gastrointestinal - other findings: obese Extremities: no cyanosis Extremities - other findings: R foot with dressing in place, post-surgical changes noted Skin: normal turgor Neurological: cranial nerve grossly intact, no new deficit Musculoskeletal: normal tone, generalized weakness Psychiatric: normal affect, A&O x 3 Hosp A/P (1) Gangrene of toe of right foot Code(s): I96 - GANGRENE, NOT ELSEWHERE CLASSIFIED Status: Acute Plan: s/p amputation of R great toe POD #3, continue local wound care, pain control (2) Diabetes Code(s): E11.9 - TYPE 2 DIABETES MELLITUS WITHOUT COMPLICATIONS Status: Industrial Hygienist bjorn Qualifiers: Diabetes mellitus complication detail: with peripheral angiopathy with gangrene Plan: Continue ISS, Metformin, serial accuchecks, ADA (3) HTN (hypertension) Code(s): I10 - ESSENTIAL (PRIMARY) HYPERTENSION Status: Chronic Qualifiers: Hypertension type: essential hypertension Qualified Code(s): I10 - Essential (primary) hypertension Plan: Improved, continue Norvasc 5mg daily (4) Smoker Code(s): F17.200 - NICOTINE DEPENDENCE, UNSPECIFIED, UNCOMPLICATED Status: Chronic Plan: Tobacco cessation resources - Plan continue antibiotics, PT/OT, social worker health services, out of bed/ambulate Stable currently Continue Zosyn IV Consult WCT team CM consult for SNF/Rehab options Pain control Resume Metformin ISS OOB with PT for ambulation/mobilization
--- NOTE | 2020-09-01 10:33 | PDOC.BPN ---
- Brief Progress Note Encounter Date: 09/01/20 Encounter Time: 10:30 Discussed with case mgmt regarding SNF/rehab options but pt is unfunded and ambulated approx 500ft today and won't be approved to any facility. Plan to return home on and do self-care/dressing changes for R foot.
[2020-09-01] MEDS ORDERED: Senokot S 8.6-50 MG TAB PO SCH (11:00)
[2020-09-01] MEDS: Polyethylene Glycol 3350 17 GM Packet PO PRN (15:59)
[2020-09-01] MEDS: Atorvastatin Calcium 40 MG TAB PO SCH (21:01)
[2020-09-01] MEDS: Nicotine 21 MG PATCH TD SCH (21:01)
[2020-09-01] MEDS: Senokot S 8.6-50 MG TAB PO SCH (21:01)
[2020-09-01] MEDS: Amoxicillin/Potassium Clav 500 MG TAB PO SCH (21:02)
[2020-09-02] MEDS: HYDROcodone/Acetaminophen 7.5/325 mg Tablet PO PRN ×3 (03:03→13:06)
[2020-09-02] MEDS: metFORMIN 500 MG TAB PO SCH (09:22)
[2020-09-02] MEDS: Senokot S 8.6-50 MG TAB PO SCH (09:22)
[2020-09-02] MEDS: Citalopram 20 MG TAB PO SCH (09:23)
[2020-09-02] MEDS: Amlodipine 5 MG TAB PO SCH (09:23)
[2020-09-02] MEDS: ALPRAZolam 0.5 MG TAB PO SCH (09:23)
[2020-09-02] MEDS: Amoxicillin/Potassium Clav 500 MG TAB PO SCH (09:24)
[2020-09-02] MEDS: Clopidogrel Bisulfate 75 MG TAB PO SCH (09:24)
[2020-09-02] MEDS: Enoxaparin Sodium 40 MG/0.4 ML SYRINGE SC SCH (09:25)
--- NOTE | 2020-09-02 13:22 | PDOC.HOSPP ---
- Subjective Encounter Date: 09/02/20 Encounter Time: 11:30 Subjective: Patient up and ambulating with PT. Still needing pain medication. Ready to go home. - Objective Vital Signs & Weight: Vital Signs (12 hours) Temp Pulse Resp BP BP Pulse Ox 09/02/20 11:28 98.3 F 73 18 132/81 95 09/02/20 09:23 73 134/74 09/02/20 06:58 98.3 F 73 17 134/74 95 Weight Admit Weight 200 lb Weight 200 lb 2 oz I&O: 09/01/20 09/02/20 09/03/20 06:59 06:59 06:59 Intake Total 1030 776 240 Balance 1030 776 240 Result Diagrams: 09/01/20 05:42 09/01/20 05:42 Additional Labs: Accuchecks 09/02/20 09/01/20 04:24 15:40 POC Glucose 121 H 98 Hospitalist ROS - Review of Systems Constitutional: denies: fever, chills Respiratory: denies: cough, shortness of breath Cardiovascular: denies: chest pain, palpitations Gastrointestinal: denies: nausea, vomiting, abdominal pain Musculoskeletal: reports: foot pain - Medication Medications: Active Medications Generic Name Dose Route Start Last Admin Trade Name Freq PRN Reason Stop Dose Admin Hydrocodone Bitart/Acetaminophen 1 tab 08/26/20 20:30 08/27/20 01:07 Hydrocodone/Acetaminophen 7.5/325 Mg Tablet PO 1 tab Q4H PRN Administration Moderate Pain (4-6) Hydrocodone Bitart/Acetaminophen 2 tab 08/26/20 20:30 09/02/20 13:06 Hydrocodone/Acetaminophen 7.5/325 Mg Tablet PO 2 tab Q4H PRN Administration Severe Pain (7-10) Alprazolam 0.5 mg 08/28/20 09:00 09/02/20 09:23 Alprazolam 0.5 Mg Tab PO 0.5 mg TID MIGDALIA Administration Amlodipine Besylate 5 mg 09/01/20 09:00 09/02/20 09:23 Amlodipine 5 Mg Tab PO 5 mg DAILY MIGDALIA Administration Amoxicillin/Clavulanate Potassium 500 mg 09/01/20 21:00 09/02/20 09:24 Amoxicillin/Potassium Clav 500 Mg Tab PO 500 mg BID MIGDALIA Administration Atorvastatin Calcium 40 mg 08/31/20 21:00 09/01/20 21:01 Atorvastatin Calcium 40 Mg Tab PO 40 mg HS MIGDALIA Administration Citalopram Hydrobromide 40 mg 09/01/20 09:00 09/02/20 09:23 Citalopram 20 Mg Tab PO 40 mg DAILY MIGDALIA Administration Clopidogrel Bisulfate 75 mg 09/01/20 09:00 09/02/20 09:24 Clopidogrel Bisulfate 75 Mg Tab PO 75 mg DAILY MIGDALIA Administration Enoxaparin Sodium 40 mg 08/27/20 09:00 09/02/20 09:25 Enoxaparin Sodium 40 Mg/0.4 Ml Syringe SC 40 mg 0900 MIGDALIA Administration Metformin HCl 1,000 mg 08/31/20 17:00 09/02/20 09:22 Metformin 500 Mg Tab PO 1,000 mg BID-WM MIGDALIA Administration Morphine Sulfate 2 mg 08/27/20 17:53 08/30/20 20:01 Morphine 2 Mg/Ml Vial SLOW IVP 2 mg Q4H PRN Administration Moderate to Severe Pain (6-10) Nicotine 21 mg 08/26/20 20:30 09/01/20 21:01 Nicotine 21 Mg Patch TD 21 mg Q24HR MIGDALIA Administration Polyethylene Glycol 17 gm 08/30/20 12:29 09/01/20 15:59 Polyethylene Glycol 3350 17 Gm Packet PO 17 gm DAILYPRN PRN Administration Constipation Senna/Docusate Sodium 1 tab 09/01/20 21:00 09/02/20 09:22 Senokot S 8.6-50 Mg Tab PO 1 tab BID MIGDALIA Administration Sodium Chloride 10 ml 09/01/20 21:00 09/02/20 09:27 Flush - Normal Saline 10 Ml Syringe IVF Not Given Q12HR [facility] - Exam General Appearance: NAD, awake alert ENT: moist mucosa Heart: RRR, no murmur, no gallops, no rubs Respiratory: CTAB, no wheezes, no rales, no ronchi Gastrointestinal: soft, non-tender, non-distended, normal bowel sounds Extremities - other findings: right foot with dressing in place C/D/I Psychiatric: normal affect, normal behavior, A&O x 3 Hosp A/P - Plan (1) Gangrene of toe of right foot Code(s): I96 - GANGRENE, NOT ELSEWHERE CLASSIFIED Status: Acute Plan: s/p amputation of R great toe POD #3, continue local wound care, pain control (2) Diabetes Code(s): E11.9 - TYPE 2 DIABETES MELLITUS WITHOUT COMPLICATIONS Status: Chronic Qualifiers: Diabetes mellitus complication detail: with peripheral angiopathy with gangrene Plan: Continue ISS, Metformin, serial accuchecks, ADA (3) HTN (hypertension) Code(s): I10 - ESSENTIAL (PRIMARY) HYPERTENSION Status: Chronic Qualifiers: Hypertension type: essential hypertension Qualified Code(s): I10 - Essential (primary) hypertension Plan: Improved, continue Norvasc 5mg daily (4) Smoker Code(s): F17.200 - NICOTINE DEPENDENCE, UNSPECIFIED, UNCOMPLICATED Status: Chronic Plan: Tobacco cessation resources - Plan continue antibiotics, PT/OT, social service coordinator, out of bed/ambulate Stable currently Continue Zosyn IV- change to Augmentin. Consult WCT team Pain control Resume Metformin ISS OOB with PT for ambulation/mobilization Patient unfunded, has family support at home. Wound care teaching and supplies provided. Will d/c home.
[2020-09-02 13:30] VITALS: BP 156/88; TEMP 98.1
--- NOTE | 2020-09-04 07:33 | DIS ---
DATE OF ADMISSION: 08/26/2020 DATE OF DISCHARGE: 09/02/2020 [facility] REASON FOR ADMISSION: Right great toe pain. DIAGNOSES AT DISCHARGE: 1. Ischemic gangrene of the right great toe, status post amputation. 2. Diabetes mellitus type 2. 3. Hypertension. 4. Tobacco abuse. PROCEDURES: 1. Lower extremity ultrasound showing arterial structures of the right lower extremity patent with decreased velocity within the mid SFA in the region of the popliteal artery, may signify areas of underlying stenosis. There is some runoff vessel disease most prominently involving the anterior tibial artery and dorsalis pedis artery. 2. Amputation of right great toe. CONSULTATIONS: Vascular Surgery, Dr. English. SUMMARY OF HOSPITAL COURSE: This is a 54-year-old white female with a known history of diabetes, hypertension, hyperlipidemia, who came in with right great toe pain and discoloration. She noticed this developing over the last month, was hospitalized for a week at [facility], and recommended to get an amputation. She was discharged from there, was getting worse at home, and so came in here for evaluation. The patient was found to have gangrene in the toe with some cellulitis. She was started on antibiotics. Dr. English was consulted. He discussed with her and she eventually agreed to finally get the amputation done. He did amputate her toe. She did well postoperatively, was up ambulating. We did transition her over to oral Augmentin after a couple more days of IV antibiotic therapy. The patient is unfunded, was unable to get any sort of rehab. She was able to get up and walk around with physical therapy and she was given teaching on doing proper wound care and given supplies for that while in the hospital. She was doing well on the day of discharge and is being discharged home. DISCHARGE MANAGEMENT: Discharged home. ACTIVITY: As tolerated. DIET: Diabetic diet. DISCHARGE INSTRUCTIONS: Wound care as instructed. Follow up with [facility] in [address] English's office next week for an appointment. DISCHARGE MEDICATIONS: 1. Augmentin 500 mg twice a day, 14 tablets dispensed. 2. Tylenol with Codeine No. 3 two tablets every 6 hours as needed for pain, 30 tablets dispensed. 3. Alprazolam 0.5 mg 3 times a day. 4. Atorvastatin 40 mg daily. 5. Citalopram 40 mg daily. 6. Clopidogrel 75 mg daily. 7. Metformin 1000 mg twice a day. 8. Lisinopril 40 mg daily. TIME SPENT: Arranging the details of this discharge took 32 minutes. Job ID: [id number]
--- NOTE | 2020-09-05 04:21 | PQF ---
CLINICAL DOCUMENTATION CLARIFICATION FORM: Dear : Cisco Quinn Date / Time: 09/05/20 042 Please exercise your independent, professional judgment in responding to the clarification form. Clinical indicators are provided on the bottom of this form for your review Clarification of Pathology report: Bone with focal Acute Osteomyelitis Please check appropriate box(es): [ ] Agree w the pathology finding of: Acute Osteomyelitis [ ] Other explanation of pathology findings (please specify) [ ] Other diagnosis, please specify [ ] Unable to determine Physician Signature: Date/Time: For continuity of documentation, please document condition throughout progress notes and discharge summary. Thank You To be completed by CDI/Coding staff for physician review: Present Clinical Indicators - Signs / Symptoms / Labs Results and Location in Medical Record [X] Gangrene Pathology report p1 08/29 Dr Dunaway [X] Bone with focal Acute Osteomyelitis Pathology report 08/29 Dr Dunaway [X] WBC 11.3, Neutrophils 58.4, Pt count 392 Laboratory 08/26 [X] BP 123/75, Pulse 93, Resp 16, Temp 98.3 Vital signs 08/26 [X] Ischemic rest pain, left great toe Operative report Dr English 08/29 [X] Toe was blue to black with some blanching on the plantar aspect Consult 08/27 [X] mild swelling in the dorsum of the foot and some erythema Consult 08/27 Present Risk Factors Results and Location in Medical Record [X] DM H&P p1 08/26 Dr Raymundo [X] HTN H&P p1 08/26 Dr Raymundo [X] Cellulitis of toe H&P p1 08/26 Dr Raymundo [X] Obesity H&P p1 08/26 Dr Raymundo [X] Smoker ED Notes 08/26 Present Treatments Results and Location in Medical Record [X] IV Vancomycin 1gm DEC 14 [X] IVF NS 1L DEC 14 [X] IV Zosyn 3.375gm DEC 14 [X] Great toe amputation Operative report Dr English 08/29 CDS/Wood Processing Worker Signature: Elida Sherwood Phone #: [phone] Date/Time: 09/05/2020 0420 This is a permanent part of the Medical Record [facility]
--- NOTE | 2020-09-05 04:22 | PQF ---
CLINICAL DOCUMENTATION CLARIFICATION FORM: Dear :Chris English Date / Time: 09/05/2020 Please exercise your independent, professional judgment in responding to the clarification form. Clinical indicators are provided on the bottom of this form for your review Please check appropriate box(es): Conflicting documentation was noted in the Medical Record; please clarify if patient is being treated/monitored for: [ y ] Right Great Toe [ ] Left Great Toe [ ] Other diagnosis [ ] Unable to determine Physician Signature: Date/Time: For continuity of documentation, please document condition throughout progress notes and discharge summary. Thank You To be completed by CDI/Coding staff for physician review: Present Clinical Indicators - Signs / Symptoms / Labs Results and Location in Medical Record [X] Right great toe, ischemia, gangrene Pathology report 08/29 [X] ischemic rest pain, left great toe Operative report Dr English 08/29 [X] Pain in right big toe H&P p1 08/26 Dr Raymundo Present Risk Factors Results and Location in Medical Record [X] DM H&P p1 08/26 Dr Raymundo [X] HTN H&P p1 08/26 Dr Raymundo [X] Obesity H&P p1 08/26 Dr Raymundo [X] Smoker H&P p1 08/26 Dr Raymundo [X] Cellulitis of Right great toe H&P p3 08/26 Dr Raymundo Present Treatments Results and Location in Medical Record [X] Amputation of left great toe Operative report Dr English 08/29 [X] IV Cefepime 2 gm DEC 14 [X] IV Zosyn 3.375 gm DEC 14 [X] IV Vancomycin 1 gm DEC 14 CDS/Battery Inspector Signature: Elida Sherwood Phone #: [phone] Date/Time: 09/05/2020 This is a permanent part of the Medical Record [facility]
--- NOTE | 2020-09-09 14:26 | EKG ---
Test Reason : Blood Pressure : / mmHG Vent. Rate : 096 BPM Atrial Rate : 096 BPM P-R Int : 144 ms QRS Dur : 074 ms QT Int : 362 ms P-R-T Axes : 051 028 035 degrees QTc Int : 457 ms Sinus rhythm with Premature atrial complexes Otherwise normal ECG Confirmed by SARAH GEORGES DO ([id number]), tape editor LC CHILD ([id number]) on 09/09/2020 2:26:20 PM Referred By: Confirmed By:SARAH GEORGES DO
== END 2020-09-02 14:17 | disposition home or self-care (01) | DRG 256 ==
LOC: ERS 14:26 → T4-B 18:23 → UNDOADMIN 18:35 → T4-B 18:35
PROVIDERS: ADMIT Internal Medicine; ATTEND Internal Medicine
PROC: 0Y6P0Z1 Detachment at Right 1st Toe, High, Open Approach (ICD-10-PCS; principal; 2020-08-29)
DX: E11.52 Type 2 diabetes mellitus with diabetic peripheral angiopathy with gangrene (principal); I96 Gangrene, not elsewhere classified; Z20.828 Contact with and (suspected) exposure to other viral communicable diseases; I10 Essential (primary) hypertension; F17.210 Nicotine dependence, cigarettes, uncomplicated; F41.9 Anxiety disorder, unspecified; E78.00 Pure hypercholesterolemia, unspecified; F12.10 Cannabis abuse, uncomplicated; E66.9 Obesity, unspecified; L03.031 Cellulitis of right toe; Z68.39 Body mass index [BMI] 39.0-39.9, adult; Z79.899 Other long term (current) drug therapy; Z79.84 Long term (current) use of oral hypoglycemic drugs
CPT/HCPCS: 36415; 36416; 80048; 80053; 83036; 83605; 85007; 85025; 85027; 85652; 86140; 87040; 87635; 88305; 88311; 93005; 93923; 96365; 96375; J0692; J1650; J1885; J2250; J2270; J2405; J2543; J2704; J3010; J3370; J3490; S0028; U0003

== ENCOUNTER 2020-09-08 23:09 | Emergency (ER) | payer SELFPAY ==
[2020-09-09] MEDS ORDERED: Ketorolac Tromethamine 30 MG/ML VIAL ONE (01:10)
== END 2020-09-09 01:10 | disposition home or self-care (01) ==
LOC: ERS 23:09
DX: G89.18 Other acute postprocedural pain (principal); M79.674 Pain in right toe(s); I10 Essential (primary) hypertension; E11.9 Type 2 diabetes mellitus without complications; F17.210 Nicotine dependence, cigarettes, uncomplicated
CPT/HCPCS: 96372; 99283; J1885

== ENCOUNTER 2020-12-18 13:13 | Outpatient (CLI) | payer OTHER | END 2020-12-18 13:14 | disposition home or self-care (01) | LOC: ULT 13:13 | PROVIDERS: ATTEND Psychiatry & Neurology Neurology | DX: Z02.71 Encounter for disability determination (principal) | CPT/HCPCS: 93922 ==

== ENCOUNTER 2021-03-06 12:08 | Outpatient (CLI) | payer OTHER | END 2021-03-06 12:09 | disposition home or self-care (01) | LOC: BICRAD 12:08 | PROVIDERS: ATTEND Internal Medicine | DX: Z02.71 Encounter for disability determination (principal); M19.071 Primary osteoarthritis, right ankle and foot; Z98.890 Other specified postprocedural states ==